=== PATIENT | male | born 1960 | race Caucasian/White ===

== ENCOUNTER → 2016-10-01 | Outpatient (CLI) | payer OTHER ==
--- NOTE | ~2016-10-01 | MR165 ---
[facility] A Service of [facility] & [facility] RADIOLOGY TEXT RESULTS PATIENT: SHUKRI PARDO LOCATION: [facility] : 64 UNIT #: [id number] AGE: [address]: Papa Amor MD SEX: M ORDER DR: [id number] [place] [id number] O MR#: [id number] Acc #: [id number] NAME: SHUKRI PARDO : 1960 SEX: M STUDY DATE/TIME: 10/01/2016 17:09 UNIT: [facility] ROOM: STUDY DESCRIPTION: MR Shoulder Wo Contrast Rt Attending Physician: Papa Amor M.D. Referring Physician: Papa Young M.D. Ordering Physician: Papa Amor M.D. Primary Care Physician: Loco Valverde M.D. MRI CENTER REPORT This report is preliminary unless electronic signature is present. EXAM MRI of the right shoulder without contrast HISTORY 56-year-old male injured shoulder changing oil 09/09/2016. Complains of increasing shoulder pain. History of SLAP repair January 25, 2013. Complains of shoulder pain for 3 weeks. COMPARISON MRI of the right shoulder 07/20/2013. FINDINGS Multiplanar, multiecho imaging was performed of the right shoulder utilizing a high field magnet and dedicated protocol. Examination demonstrates AC joint arthropathy with superiorly and inferiorly directed osteophytes and capsular hypertrophy. Inferiorly-directed distal clavicular osteophyte does produce some mass effect on the rotator cuff. There is extensive marrow edema bordering the AC joint which appears significantly increased from the patient's MRI of 2013 and may be a significant contributing factor to the patient's shoulder pain. No AC joint separation or osteolysis. 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 There is mild lateral downsloping of the acromion. Marrow signal within the proximal humerus and glenoid appears normal. Susceptibility artifact is seen over the lateral shoulder. Patient is status post biceps tenodesis. The rotator cuff demonstrates supraspinatus tendinopathy with attenuation of the supraspinatus tendon within the critical zone measuring close to 2 cm AP dimension and no more than 6 mm in medial to lateral dimension. This is felt to represent a partial-thickness bursal sided delaminating tear and appears more conspicuous than on the study from 2013 though does directly correspond to the site of previous attenuation of the cuff. The infraspinatus, teres minor and subscapularis tendons appear intact. No STS. [facility] A Service of [facility] RADIOLOGY TEXT RESULTS PATIENT: SHUKRI PARDO LOCATION: [facility] : 64 UNIT #: [id number] AGE: [address]: Papa Amor MD SEX: M ORDER DR: muscle atrophy or edema. The patient has undergone apparent debridement of the superior labrum and SLAP repair, some degeneration but no defined tear or detachment. No paralabral cyst. Anterior-posterior labrum unremarkable. Articular cartilage appears normal. The deltoid and extraarticular soft tissues appear normal. IMPRESSION 1. AC joint arthropathy with extensive marrow edema bordering the AC joint, consistent with active inflammatory component. This appears increased from the 2013 study and may be a significant contributing factor to the patient's acute pain. 2. Partial-thickness bursal sided delaminating tear within the critical zone of the supraspinatus tendon measuring about 6 mm medial to lateral x 2 cm AP dimension. This is estimated to involve about 50% of the thickness of the tendon and is superimposed on diffuse tendinopathy. No full-thickness tear identified. Dictated by... Elias Boyd M.D. THIS IS AN ELECTRONICALLY VERIFIED REPORT Elias Boyd M.D. at 10/04/2016 4:56 PM BRIANNA/chintan TD: 10/04/2016 10:32 JOB #: [id number] MRI CENTER REPORT Page 1 of 1
== END | disposition home or self-care (01) ==
LOC: SMRI 16:40
DX: M75.111 Incomplete rotator cuff tear or rupture of right shoulder, not specified as traumatic (principal); M25.511 Pain in right shoulder; M19.011 Primary osteoarthritis, right shoulder; Z87.39 Personal history of other diseases of the musculoskeletal system and connective tissue
CPT/HCPCS: 73221

== ENCOUNTER → 2016-12-09 | Outpatient (CLI) | payer OTHER ==
--- NOTE | ~2016-12-09 | CT55 ---
[facility] A Service of [facility] RADIOLOGY TEXT RESULTS PATIENT: SHUKRI PARDO LOCATION: [facility] : 64 UNIT #: [id number] AGE: [address]: Loco Valverde MD SEX: M ORDER DR: [id number] [place] [id number] O MR#: [id number] Acc #: [id number] NAME: SHUKRI PARDO : 1960 SEX: M STUDY DATE/TIME: 12/09/2016 17:03 UNIT: [facility] ROOM: STUDY DESCRIPTION: CT Chest W Con Attending Physician: Loco Valverde M.D. Ordering Physician: Loco Valverde M.D. Primary Care Physician: Loco Valverde M.D. MEDICAL IMAGING REPORT This report is preliminary unless electronic signature is present. EXAM CT chest INDICATION Atypical chest pain. Pleuritis. Pain with coughing or sneezing. TECHNIQUE CT of the chest with contrast (70 mL Isovue-370 IV contrast). Coronal and sagittal reconstructions were obtained. This CT exam was performed with one or more of the following radiation dose reduction techniques: automatic exposure control, adjustment of mA and/or kV according to patient size, and iterative reconstruction. COMPARISON Chest radiograph dated 10/26/2016. FINDINGS No pathologically enlarged mediastinal or hilar lymph nodes. The thoracic aorta is normal in caliber. There is no pericardial or pleural effusion. There is occasional coronary artery calcifications. The lungs have some mild atelectasis or scarring in both lung bases. The central airways are patent. There is mild emphysema. There is a fracture through the proximal body of the sternum. There is some lucency associated with the fracture which could represent bone resorption however, presence of associated mass/pathologic fracture should be considered. There is some mild callus formation around the fracture. This is subacute in timeframe. No additional bone lesions are identified. [facility] A Service of [facility] RADIOLOGY TEXT RESULTS PATIENT: SHKURI PARDO LOCATION: [facility] : 64 UNIT #: [id number] AGE: [address]: Loco Valverde MD SEX: M ORDER DR: IMPRESSION 1. Subacute fracture of the proximal body of the sternum. There is some callus formation indicative of a subacute fracture. 2. Lucency within the sternum at the fracture site could simply represent some osseous resorption with the healing process, however, presence of a pathologic fracture should be considered. No additional osseous lesions are identified in the chest. Consider a bone scan to evaluate for additional abnormalities and assess for possible metastatic disease. MR of the chest or a followup chest CT can also be performed. 3. Mild emphysema. Dictated by... Emir Martínez M.D. THIS IS AN ELECTRONICALLY VERIFIED REPORT Emir Martínez M.D. at 12/10/2016 3:07 PM Paula TD: 12/10/2016 12:02 JOB #: [id number] MEDICAL IMAGING REPORT Page 1 of 1
== END | disposition home or self-care (01) ==
LOC: SCT 16:28
DX: R07.89 Other chest pain (principal); S22.22XA Fracture of body of sternum, initial encounter for closed fracture
CPT/HCPCS: 71260; Q9967

== ENCOUNTER → 2016-12-16 | Outpatient (CLI) | payer OTHER ==
--- NOTE | ~2016-12-16 | NM8 ---
[facility] A Service of [facility] & [facility] RADIOLOGY TEXT RESULTS PATIENT: SHUKRI PARDO LOCATION: [facility] : 64 UNIT #: [id number] AGE: [address]: Loco Valverde MD SEX: M ORDER DR: [id number] [facility] [address] [place], [place] [address] [id number] O MR#: [id number] Acc #: [id number] NAME: SHUKRI PARDO. : 1960 SEX: M STUDY DATE/TIME: 12/16/2016 10:35 UNIT: [facility] ROOM: STUDY DESCRIPTION: NM Bone or Joint Whole Body Attending Physician: Loco Valverde M.D. Referring Physician: Loco Valverde M.D. Ordering Physician: Loco Valverde M.D. Primary Care Physician: Loco Valverde M.D. MEDICAL IMAGING REPORT This report is preliminary unless electronic signature is present EXAM Whole-body bone scan HISTORY 56-year-old male recently diagnosed with a sternal fracture. Possibly from a fall but not sure of etiology. COMPARISON CT chest 12/09/2016. PA and lateral chest 10/26/2016. TECHNIQUE Whole-body and selected spot images were performed of the axial and appendicular skeleton following the intravenous administration of 30.7 mCi technetium-99m MDP. FINDINGS Examination demonstrates intense uptake within the sternum corresponding to the bone lesion as noted on the patient's recent CT scan of 12/09/2016. There is also increased uptake within the right AC joint, most likely degenerative in nature. No other foci of increased uptake identified to suggest osseous metastatic disease. Bilateral renal activity and normal bladder activity noted. The lesion within the sternum and is somewhat atypical in appearance for a sternal stress fracture or posttraumatic fracture given the extensive osteolysis. There is periostitis and increased uptake on the bone scan all compatible with an active process. Other considerations might include infectious etiology. Correlation with the patient's clinical history, laboratory data may be helpful. Given the atypical appearance, further evaluation with a biopsy or aspiration may be warranted to exclude a pathologic lesion. IMPRESSION Focus of increased uptake within the upper body of the sternum corresponding to the fracture and lytic lesion as noted on the patient's STS. [facility] A Service of [facility] & [facility] RADIOLOGY TEXT RESULTS PATIENT: SHUKRI PARDO LOCATION: [facility] : 64 UNIT #: [id number] AGE: [address]: Loco Valverde MD SEX: M ORDER DR: recent chest CT. Given the lack of a distinct history of trauma as well as the atypical features on CT, consideration should be made for possible pathologic lesion to include possible metastatic disease or less likely primary bone lesion or even consideration should be made for infection. Correlation with the patient's laboratory data and clinical history may be helpful but, if not, definitive further evaluation with aspiration or biopsy may be warranted to exclude underlying pathologic process. Dictated by... Elias Boyd M.D. THIS IS AN ELECTRONICALLY VERIFIED REPORT Elias Boyd M.D. at 12/20/2016 5:16 PM BRIANNA/rhonda TD: 12/20/2016 09:11 JOB #: [id number] MEDICAL IMAGING REPORT Page 1 of 1 COPY
== END | disposition home or self-care (01) ==
LOC: CNUC 07:25
DX: S22.20XA Unspecified fracture of sternum, initial encounter for closed fracture (principal)
CPT/HCPCS: 78306; A9503

== ENCOUNTER → 2017-01-13 | Outpatient (CLI) | payer OTHER ==
[~2017-01-13] VITALS: Ht 182.9 cm; Wt 108.2 kg
--- NOTE | ~2017-01-13 | CT134 ---
[facility] A Service of [facility] & [facility] RADIOLOGY TEXT RESULTS PATIENT: SHUKRI PARDO LOCATION: [facility] : 64 UNIT #: [id number] AGE: [address]: Loco Valverde MD SEX: M ORDER DR: [id number] [facility] [address] [place], [place] [address] [id number] O MR#: [id number] Acc #: [id number] NAME: SHUKRI PARDO. : 1960 SEX: M STUDY DATE/TIME: 01/13/2017 8:51 UNIT: [facility] ROOM: STUDY DESCRIPTION: CT Guide Attending Physician: Loco Valverde M.D. Referring Physician: Loco Valverde M.D. Ordering Physician: Loco Valverde M.D. Primary Care Physician: Loco Valverde M.D. MEDICAL IMAGING REPORT This report is preliminary unless electronic signature is present EXAM CT guidance sternal biopsy INDICATION 56-year-old male with a history of sternal fracture and underlying sternal lesion. Biopsy of the lesion was requested. MEDICATIONS/SEDATION TIME The medications administered were 4 mg of Versed IV, 150 mcg of Fentanyl IV. Approximately 35 minutes of sedation time was monitored by appropriately credentialed radiology nursing staff. [id number] time by Dr. Boyd at 19 minutes. PRE-PROCEDURE The risks, benefits and alternatives of the procedure were discussed with the patient and an informed consent was obtained. In the procedure room, a time-out was performed confirming correct patient and procedure. All elements of maximum sterile-barrier technique utilized according to guidelines appropriate for the procedure. TECHNIQUE/FINDINGS This CT exam was performed with one or more of the following radiation dose reduction techniques: Automatic exposure control, adjustment of mA and/or kV according to patient size, and iterative reconstruction. Patient is placed in the supine position on the CT scanner and a preliminary CT scan was performed identifying the healing fracture of the sternum with the lucent lesion adjacent to the sternal fracture. The overlying skin was prepped and draped in usual sterile fashion. 1% lidocaine was utilized to anesthetize the skin and underlying subcutaneous tissues. Next, under CT guidance, a 14-gauge Ostycut needle was advanced into the lesion under CT guidance and a biopsy was obtained and sent to pathology. The needle was removed and a sterile dressing was applied. No STS. [facility] A Service of [facility] RADIOLOGY TEXT RESULTS PATIENT: SHUKRI PARDO LOCATION: [facility] #: [id number] : 64 UNIT #: [id number] AGE: [address]: Loco Valverde MD SEX: M ORDER DR: immediate complications. IMPRESSION Technically successful CT-guided biopsy of a sternal lesion. Dictated by... David Boyd M.D. THIS IS AN ELECTRONICALLY VERIFIED REPORT David Boyd M.D. at 01/16/2017 9:05 AM GUILLERMO/rhonda TD: 01/13/2017 18:22 JOB #: [id number] MEDICAL IMAGING REPORT Page 1 of 1 COPY
[2017-01-13 07:39] LABS: HEMATOCRIT 43.7 % (38.0-50.0); HEMOGLOBIN 14.3 gm/dL (13.0-16.0); MEAN CELL VOLUME 84.7 FL (83-96); MEAN CORPUSCULAR HEMOGLOBIN 27.8 PG (28-34); MEAN CORPUSCULAR HGB CONC 32.8 g/dL (30-36); MEAN PLATELET VOLUME 7.8 FL (6.5-11.5); RED BLOOD COUNT 5.16 X10e (3.90-5.60); RED CELL DISTRIBUTION WIDTH 14.8 % (11.0-15.5); WHITE BLOOD COUNT 6.4 X10e3 (4.0-10.5)
[2017-01-13 07:57] LABS: PARTIAL THROMBOPLASTIN TIME 26.6 SECONDS (23.5-31.3); PROTHROMBIN TIME (PATIENT) 10.6 SECONDS (10.0-11.7)
== END | disposition home or self-care (01) ==
LOC: CIVR 01-06 09:00
PROVIDERS: Family Medicine
DX: M89.9 Disorder of bone, unspecified (principal)
CPT/HCPCS: 36415; 77012; 85027; 85610; 85730; 88305; J2250; J3010